=== PATIENT | female | born 1940 | race Caucasian/White ===

== ENCOUNTER 2019-10-06 13:22 | Outpatient (CLI) | payer MEDICARE, OTHER, SELFPAY ==
--- NOTE | 2019-10-06 | XR_ITS ---
WS: [id number] LUMBAR SPINE: 5 VIEWS TECHNIQUE: AP, lateral, and L5-S1 spot. Lateral views in neutral, flexion and extension. HISTORY: Low back pain. COMPARISON: 05/26/2019 Prior posterior lumbar fusion at L4-5. Pedicle screws and interconnecting rods and interbody spacer a re unchanged since the prior study. No hardware failure. No lucency around the screws. LEFT convex curvature of the lumbar spine centered at L3-4. Asymmetric disc space narrowing at L3-4 w ith retrolisthesis of L3 by 7.8 mm. With flexion and extension there is continued retrolisthesis. Pro bably not significantly changed but study is limited as there is significant rotation of the vertebra l bodies on upright imaging. SI joints are symmetric bilaterally. No soft tissue abnormalities. XR/XR lumbar spine min 4V [id number] IMPRESSION: 1. Stable posterior lumbar fusion at L4-5 and 25/08/2018. 2. Retrolisthesis of L3 with asymmetric disc space narrowing at L3-4. No insta bility demonstrated.
== END 2019-10-06 13:23 | disposition home or self-care (01) ==
PROVIDERS: Family Provider Internal Medicine; Visit Provider Internal Medicine
DX: Z01.89 Encounter for other specified special examinations (principal)

== ENCOUNTER 2019-11-18 08:26 | Outpatient (CLI) | payer MEDICARE, OTHER, SELFPAY ==
--- NOTE | 2019-11-18 08:39 | MR_ITS ---
WS: [id number] MRI LUMBAR SPINE NONCONTRAST TECHNIQUE: Sagittal T1, T2 and STIR imaging. Axial T1 and T2 imaging. CLINICAL INFORMATION: RIGHT LUMBAR RADICULOPATHY COMPARISON: None. FINDINGS: Mild lumbar curve convex left. Pedicle screw fixation L4-5 with interbody fusion. L1-L2: Normal. L2-L3: Mild annular bulging. Narrowing of the subarticular recess bilaterally. Mild facet arthropathy . Spinal canal and foramen are patent. L3-L4: Mild disc bulging with osteophytic ridging. Central disc protrusion with moderate central nando l stenosis. Impingement traversing L4 nerve roots. Moderate facet arthropathy. Moderate right and mil d left foraminal narrowing. L4-L5: Pedicle screw fixation with interbody fusion. Spinal canal and foramen are patent. L5-S1: Mild disc bulging with osteophytic ridging. Slight effacement of the ventral thecal sac. Spina l canal and foramen are patent. Moderate facet arthropathy. Visualized pelvic bony structures: Normal. Paravertebral soft tissues: Normal. MR/MR lumbar spine wo con* [id number] IMPRESSION: 1. Mild lumbar curve. No acute compression. 2. Prior pedicle screw fixation with interbody fusion L4-5. 3. Moderate central canal stenosis L3-4 due to disc bulging with a shallow simone tral disc protrusion with impingement on the subarticular recess bilaterally. M oderate right greater than left foraminal narrowing at this level. 4. Spinal canal and foramen are patent at the fusion levels L4-L5 and L5-S1.
== END 2019-11-18 08:27 | disposition home or self-care (01) ==
LOC: RADWPI 08:29
PROVIDERS: Family Provider Internal Medicine; PCP Internal Medicine; Visit Provider Internal Medicine
DX: M54.16 Radiculopathy, lumbar region (principal); M43.26 Fusion of spine, lumbar region; M48.061 Spinal stenosis, lumbar region without neurogenic claudication
CPT/HCPCS: 72148

== ENCOUNTER 2020-12-31 08:26 | Outpatient (CLI) | payer MEDICARE, OTHER, SELFPAY ==
--- NOTE | 2020-12-31 08:31 | MM_ITS ---
WS: [id number] BILATERAL DIGITAL SCREENING MAMMOGRAPHY WITH CAD CLINICAL INFORMATION: SCREENING HISTORY: Screening mammogram. No current complaints. COMPARISON: TECHNIQUE: Bilateral CC and MLO views. FINDINGS: History of bilateral breast reduction Scattered fibroglandular densities bilaterally. A few stable punctate calcifications. Vascular calcif ication. No suspicious focal mass, asymmetry, calcifications, or architectural distortion. No evidenc e of malignancy. MM/[id number] IMPRESSION: BI-RADS: 2-Benign FOLLOW UP: 1 Year Follow-up Recommend return to annual screening mammography.
== END 2020-12-31 08:27 | disposition home or self-care (01) ==
PROVIDERS: PCP Internal Medicine; Visit Provider Internal Medicine
DX: Z12.31 Encounter for screening mammogram for malignant neoplasm of breast (principal)
CPT/HCPCS: 77067

== ENCOUNTER 2021-12-06 13:09 | Outpatient (CLI) | payer MEDICARE, OTHER, SELFPAY ==
--- NOTE | 2021-12-06 13:21 | XR_ITS ---
WS: [id number] DEXA (DUAL ENERGY X-RAY ABSORPTIOMETRY) Bone mineral density was performed using a [employer] machine. HISTORY: POST MENOPAUSAL COMPARISON: 03/24/2015 Total hip BMD: Left: 0.889 g/cm2. T score: -0.9 Z score: 1.3 Right: 0.845 g/cm2. T score: -1.3 Z score: 1.0 10 year probability of a major osteoporotic fracture is 15.6%. XR/XR DEXA axial skeleton* [id number] IMPRESSION: OSTEOPENIA based upon the WHO classification for females.
== END 2021-12-06 13:10 | disposition home or self-care (01) ==
LOC: RAD 13:12
PROVIDERS: PCP Internal Medicine; Visit Provider Internal Medicine
DX: Z78.0 Asymptomatic menopausal state (principal); M85.80 Other specified disorders of bone density and structure, unspecified site
CPT/HCPCS: 77080

== ENCOUNTER 2022-05-24 10:48 | Outpatient (CLI) | payer MEDICARE, OTHER, SELFPAY ==
--- NOTE | 2022-05-24 11:36 | MM_ITS ---
WS: [id number] BILATERAL SCREENING DIGITAL TOMOSYNTHESIS MAMMOGRAM WITH CAD HISTORY: SCREEN COMPARISON: 12/31/2020 and 07/14/2019 Bilateral CC and MLO views with tomosynthesis and synthetic mammography submitted. Computer aided det ection analyzed. Breast composition: There are scattered areas of fibroglandular density. No suspicious masses, microc alcifications or architectural distortion. Benign calcifications. MM/[place] [id number] IMPRESSION: BI-RADS: 2-Benign FOLLOW UP: 1 Year Follow-up
== END 2022-05-24 10:49 | disposition home or self-care (01) ==
LOC: RAD 10:48
PROVIDERS: PCP Internal Medicine; Visit Provider Internal Medicine
DX: Z12.31 Encounter for screening mammogram for malignant neoplasm of breast (principal)
CPT/HCPCS: 77063; 77067

== ENCOUNTER → 2023-01-15 11:23 | Outpatient (BNVA) | payer MEDICARE, OTHER, SELFPAY | PROVIDERS: PCP Internal Medicine; Visit Provider Nurse Practitioner Family | DX: L82.1 Other seborrheic keratosis (principal); L57.0 Actinic keratosis; L81.4 Other melanin hyperpigmentation; D22.5 Melanocytic nevi of trunk; L85.3 Xerosis cutis; L57.8 Other skin changes due to chronic exposure to nonionizing radiation; Z85.828 Personal history of other malignant neoplasm of skin | CPT/HCPCS: 17000; 17003; 99214 ==

== ENCOUNTER → 2023-08-29 14:43 | Outpatient (BNVA) | payer MEDICARE, OTHER, SELFPAY | PROVIDERS: PCP Internal Medicine; Visit Provider Dermatology | DX: Z85.828 Personal history of other malignant neoplasm of skin (principal); L57.0 Actinic keratosis; L81.4 Other melanin hyperpigmentation; L57.8 Other skin changes due to chronic exposure to nonionizing radiation | CPT/HCPCS: 17000; 99213 ==

== ENCOUNTER → 2023-09-21 08:41 | Outpatient (BNVA) | payer MEDICARE, OTHER, SELFPAY | PROVIDERS: PCP Internal Medicine; Visit Provider Nurse Practitioner Family | DX: L57.0 Actinic keratosis (principal); L57.8 Other skin changes due to chronic exposure to nonionizing radiation; L81.4 Other melanin hyperpigmentation; D22.62 Melanocytic nevi of left upper limb, including shoulder | CPT/HCPCS: 17000; 99213 ==

== ENCOUNTER 2024-09-11 09:29 | Outpatient (CLI) | payer MEDICARE, OTHER, SELFPAY ==
--- NOTE | 2024-09-11 09:34 | MM_ITS ---
WS: [id number] Bilateral screening 3D tomosynthesis digital mammogram, 09/11/2024 9:38 AM Clinical Data: SCREENING Comparison: 05/24/2022, 12/31/2020, 07/14/2019, 07/02/2017, 04/14/2016, 03/24/2015, 11/27/2013, 04/11/2011, 02/04/2010, 11/17/2008, 10/01/2007, 06/26/2006.. Findings: No spiculated masses or clustered calcifications are seen. There are no secondary signs of carcinoma. MM/MM scr BI tomosynthesis [id number] Impression: Negative bilateral mammogram unchanged. Recommend annual screening mammograms. BIRADS: 1 - Negative. FOLLOW UP: 1 Year Follow-up DENSITY: There are scattered areas of fibroglandular density. The CAD insurance checker was used
== END 2024-09-11 09:30 | disposition home or self-care (01) ==
PROVIDERS: PCP Internal Medicine; Visit Provider Internal Medicine
DX: Z12.31 Encounter for screening mammogram for malignant neoplasm of breast (principal); R92.323 Mammographic fibroglandular density, bilateral breasts
CPT/HCPCS: 77063; 77067

== ENCOUNTER → 2025-04-02 07:37 | Outpatient (BNVA) | payer MEDICARE, OTHER, SELFPAY | PROVIDERS: PCP Family Medicine; Visit Provider Family Medicine | DX: Z13.6 Encounter for screening for cardiovascular disorders (principal) | CPT/HCPCS: 80053; 80061; 84439; 84443; 85025 ==

== ENCOUNTER → 2025-05-25 10:12 | Outpatient (BNVA) | payer MEDICARE, OTHER, SELFPAY | PROVIDERS: PCP Family Medicine; Visit Provider Nurse Practitioner Family | DX: L57.8 Other skin changes due to chronic exposure to nonionizing radiation (principal); L81.4 Other melanin hyperpigmentation; L82.1 Other seborrheic keratosis; D22.62 Melanocytic nevi of left upper limb, including shoulder; Z08 Encounter for follow-up examination after completed treatment for malignant neoplasm; Z85.828 Personal history of other malignant neoplasm of skin; L57.0 Actinic keratosis | CPT/HCPCS: 17000; 99213 ==